=== PATIENT | male | born 1965 | race Caucasian/White ===

== ENCOUNTER 2019-03-16 15:05 | Emergency (ER) | payer OTHER ==
[~2019-03-16] VITALS: Ht 180.3 cm; Wt 78.0 kg
[2019-03-16 15:38] VITALS: BP 136/89
== END 2019-03-16 16:23 | disposition home or self-care (01) ==
LOC: ER 15:06
DX: M66.821 Spontaneous rupture of other tendons, right upper arm (principal)
CPT/HCPCS: 99281

== ENCOUNTER 2019-04-06 14:15 | Emergency (ER) | payer OTHER ==
[~2019-04-06] VITALS: Ht 175.3 cm; Wt 78.2 kg
[2019-04-06 14:29] VITALS: BP 134/82
--- NOTE | 2019-04-06 14:48 | NUR ---
relieving RN for break, pt is 53 yo male from [place], tore rt bicep one month ago, needs follow up for possible surgery,
--- NOTE | 2019-04-06 15:55 | NUR ---
PT TAKEN TO MRI
== END 2019-04-06 17:35 | disposition home or self-care (01) ==
LOC: ER 14:16
DX: M79.631 Pain in right forearm (principal)
CPT/HCPCS: 73221; 99284

== ENCOUNTER 2021-01-05 11:36 | Emergency (ER) | payer OTHER ==
[~2021-01-05] VITALS: Ht 175.3 cm; Wt 75.5 kg
[2021-01-05 12:33] VITALS: BP 141/94
[2021-01-05] MEDS ORDERED: NAPR-56 PO (12:46)
[2021-01-05] MEDS ORDERED: TRAM50TA2 PO (12:46)
[2021-01-05] MEDS ORDERED: BACI28OI9 TP (12:46)
== END 2021-01-05 14:02 | disposition home or self-care (01) ==
LOC: ER 11:37
DX: S20.212A Contusion of left front wall of thorax, initial encounter (principal); S20.412A Abrasion of left back wall of thorax, initial encounter; S70.212A Abrasion, left hip, initial encounter; M79.18 Myalgia, other site; R21 Rash and other nonspecific skin eruption; Z79.2 Long term (current) use of antibiotics; Z79.899 Other long term (current) drug therapy; V26.0 Motorcycle driver injured in collision with other nonmotor vehicle in nontraffic accident; Y93.89 Activity, other specified; Y92.89 Other specified places as the place of occurrence of the external cause; Y99.8 Other external cause status
CPT/HCPCS: 99283